=== PATIENT | female | born 1990 | race Caucasian/White ===

== ENCOUNTER 2022-02-28 14:35 | Outpatient (CLI) | payer OTHER, SELFPAY ==
[2022-02-28 17:21] LABS: Albumin* 4.2 g/dL (3.3-5.0); Chloride* 106 mmol/L (96-114)
[2022-02-28 17:22] LABS: Potassium* 4.2 mmol/L (3.6-5.1); Sodium* 139 mmol/L (135-149)
[2022-02-28 17:24] LABS: Alanine Aminotransferase* 15 U/L (4-35); Alkaline Phosphatase* 77 U/L (40-150); Aspartate Amino Transferase* 25 U/L (12-35); Bilirubin Total* 0.3 mg/dL (0.1-1.5); Blood Urea Nitrogen* 11 mg/dL (5-24); Calcium* 9.1 mg/dL (8.4-10.6); Cholesterol* 166 mg/dL (90-199); Creatinine* 0.8 mg/dL (0.5-1.5); Estimated Glomerular Filt Rate 100 ml/min; Glucose* 84 mg/dL (60-115); Total Protein* 7.1 g/dL (6.0-8.3); Triglycerides* 93 mg/dL (40-149)
[2022-02-28 17:25] LABS: HDL Cholesterol* 67 mg/dL (>=50); LDL Cholesterol Calculated 80 mg/dL (<100)
[2022-02-28 17:39] LABS: Carbon Dioxide* 24 mmol/L (20-32)
[2022-02-28 18:12] LABS: Vitamin B12* 347 pg/mL (243-894)
== END 2022-02-28 14:36 | disposition home or self-care (01) ==
PROVIDERS: PCP Family Medicine; Visit Provider Family Medicine
DX: Z01.419 Encounter for gynecological examination (general) (routine) without abnormal findings (principal); R53.83 Other fatigue; N92.0 Excessive and frequent menstruation with regular cycle; Z13.6 Encounter for screening for cardiovascular disorders
CPT/HCPCS: 80053; 80061; 82607; 84443

== ENCOUNTER 2025-06-05 07:03 | Outpatient (CLI) | payer BC, SELFPAY ==
--- NOTE | 2025-06-05 07:15 | CRLHL7_ITS ---
For Patients: As a result of the Century Cures Act, medical imaging exams and procedure reports are released immediately into your electronic medical record. You may view this report before your referring provider. If you have questions, please contact your health care provider. INDICATION: Family history of heart disease and thoracic aortic aneurysm TECHNIQUE: Ultrasound aorta with color Doppler analysis. COMPARISON: None FINDINGS: The proximal abdominal aorta measures 1.9 x 1.7 cm, mid aorta measures 1.6 x 1.6 cm, distal aorta measures 1.5 x 1.5 cm, right common iliac artery measures 1.1 x 1.1 cm, and the left common iliac artery measures 1.0 x 1.0 cm. There are no periaortic abnormalities evident. IMPRESSION: Normal ultrasound of the abdominal aorta. No sign of aneurysm. Dictated by Sunny Martinez MD @ 06/05/2025 8:01:55 AM (Electronically Signed)
== END 2025-06-05 07:04 | disposition home or self-care (01) ==
PROVIDERS: PCP Family Medicine; Visit Provider Family Medicine
DX: Z13.6 Encounter for screening for cardiovascular disorders (principal); Z82.49 Family history of ischemic heart disease and other diseases of the circulatory system
CPT/HCPCS: 76706; 93306